=== PATIENT | male | born 1960 | race Caucasian/White ===

== ENCOUNTER 2019-12-22 14:07 | Emergency (ER) | payer BC, OTHER ==
[~2019-12-22] VITALS: Ht 180.3 cm; Wt 72.6 kg
[~2019-12-22 14:07] MED LIST: IBUPROFEN600 MG ORAL; ONDANSETRON ODT4 MG ORAL
[2019-12-22] MEDS ORDERED: Mylanta II UD 30ml ORAL ONE (14:45)
[2019-12-22] MEDS ORDERED: Omnipaque-300 100ml vial INJ PRN (14:45)
[2019-12-22 15:00] VITALS: BP 138/94
--- NOTE | 2019-12-22 15:44 | NUR ---
ED Nurse Note: Pt walked in from home c/o N/V since last night. Pt reports recent trip to [place] last week. Pt c/o abdominal pain and inabilty to tolerate PO intake. Pt states that he had a 99.0 temp @ home. Respirations even and unlabored on room air. Vitals stable as documented.
--- NOTE | 2019-12-22 15:50 | Emergency Room Report ---
History of Present Illness General Chief Complaint: Nausea, Vomiting, and Diarrhea Source: Patient Present Illness HPI 59-year-old male recent travel to [place] presents with acute nausea vomiting that started last night, no aggravating relieving factors severity is moderate, intermittent, he endorses some generalized abdominal cramps no diarrhea no fevers no chills no chest pain no shortness of breath no dyspnea on exertion patient presents for evaluation Allergies: Coded Allergies: No Known Allergies (Unverified , 11/26/13) Patient History Past Medical History: see triage record Reviewed Nursing Documentation: PMH: Agreed; PSxH: Agreed Nursing Documentation-PMH Past Medical History: No History, Except For Hx Hypertension: Yes Review of Systems All Other Systems: negative except mentioned in HPI Physical Exam Vital Signs Date Time Temp Pulse Resp B/P (MAP) Pulse Ox O2 Delivery O2 Flow Rate FiO2 12/22/19 14:12 98.4 109 20 142/92 (109) 97 Room Air Sp02 EP Interpretation: reviewed, normal General Appearance: well appearing, no apparent distress, alert Head: normocephalic, atraumatic Eyes: bilateral eye PERRL, bilateral eye EOMI ENT: uvula midline, moist mucus membranes Neck: supple, thyroid normal, supple/symm/no masses Respiratory: lungs clear, no respiratory distress, no retraction, no accessory muscle use Cardiovascular #1: normal peripheral pulses, regular rate, rhythm, no edema, no gallop, no murmur Gastrointestinal: non tender, soft, no guarding, no rebound Musculoskeletal: normal inspection Neurologic: alert, oriented x3 Psychiatric: mood/affect normal Skin: no rash, warm/dry Medical Decision Making Diagnostic Impression: Primary Impression: Enteritis ER Course 59-year-old male presents with abdominal pain differential diagnosis includes appendicitis diverticulitis, enteritis given his recent travel Fluids provided, Zofran provided abdomen remains soft nontender no rebound no guarding Reevaluation 7:58 PM, patient feels better We will provide patient with Zofran, supportive care disposition home with return precautions abdomen soft Laboratory Tests Test 12/22/19 15:55 12/22/19 17:30 White Blood Count 9.3 K/UL (4.8-10.8) Red Blood Count 5.88 M/UL (4.70-6.10) Hemoglobin 17.7 G/DL (14.2-18.0) Hematocrit 54.4 % (42.0-52.0) H Mean Corpuscular Volume 93 FL (80-99) Mean Corpuscular Hemoglobin 30.0 PG (27.0-31.0) Mean Corpuscular Hemoglobin Concent 32.5 G/DL (32.0-36.0) Red Cell Distribution Width 11.4 % (11.6-14.8) L Platelet Count 206 K/UL (150-450) Mean Platelet Volume 10.0 FL (6.5-10.1) Neutrophils (%) (Auto) % (45.0-75.0) Lymphocytes (%) (Auto) % (20.0-45.0) Monocytes (%) (Auto) % (1.0-10.0) Eosinophils (%) (Auto) % (0.0-3.0) Basophils (%) (Auto) % (0.0-2.0) Differential Total Cells Counted 100 Neutrophils % (Manual) 94 % (45-75) H Lymphocytes % (Manual) 4 % (20-45) L Monocytes % (Manual) 2 % (1-10) Eosinophils % (Manual) 0 % (0-3) Basophils % (Manual) 0 % (0-2) Band Neutrophils 0 % (0-8) Platelet Estimate Adequate Platelet Morphology Normal Polychromasia 1+ Urine Color Pale yellow Urine Appearance Slightly cloudy Urine pH 6 (4.5-8.0) Urine Specific [place] 1.015 (1.005-1.035) Urine Protein 1+ (NEGATIVE) H Urine Glucose (UA) Negative (NEGATIVE) Urine Ketones Negative (NEGATIVE) Urine Blood Negative (NEGATIVE) Urine Nitrite Negative (NEGATIVE) Urine Bilirubin Negative (NEGATIVE) Urine Urobilinogen Normal MG/DL (0.0-1.0) Urine Leukocyte Esterase Negative (NEGATIVE) Urine RBC 0 /HPF (0 - 0) Urine WBC 0-2 /HPF (0 - 0) Urine Squamous Epithelial Cells Occasional /LPF Urine Bacteria Few /HPF (NONE) Urine Mucus Moderate /LPF (NONE/OCC) H Sodium Level 144 MMOL/L (136-145) Potassium Level 4.5 MMOL/L (3.5-5.1) Chloride Level 109 MMOL/L (98-107) H Carbon Dioxide Level 25 MMOL/L (21-32) Anion Gap 10 mmol/L (5-15) Blood Urea Nitrogen 17 mg/dL (7-18) Creatinine 1.1 MG/DL (0.55-1.30) Estimate Glomerular Filtration Rate > 60 mL/min (>60) Glucose Level 125 MG/DL (74-106) H Calcium Level 8.4 MG/DL (8.5-10.1) L Total Bilirubin 0.6 MG/DL (0.2-1.0) Aspartate Amino Transferase (AST) 21 U/L (15-37) Alanine Aminotransferase (ALT) 28 U/L (12-78) Alkaline Phosphatase 59 U/L (46-116) Total Protein 6.7 G/DL (6.4-8.2) Albumin 3.2 G/DL (3.4-5.0) L Globulin 3.5 g/dL Albumin/Globulin Ratio 0.9 (1.0-2.7) L Lipase 80 U/L (73-393) CT/MRI/US Diagnostic Results CT/MRI/US Diagnostic Results : Impression Procedure: CT Abdomen Pelvis w/Contrast CT ABDOMEN + PELVIS With Contrast: Nonobstructing bilateral renal stones. No hydronephrosis or ureteral stone. Bilateral renal cysts. Heterogeneous, enlarged prostate. Appendix is not visualized, but no CT evidence of acute appendicitis. Mildly prominent fluid and gas-filled small bowel loops are nonspecific but could represent enteritis or ileus in the appropriate clinical setting. Atherosclerotic changes of the vasculature. No aortic aneurysm or dissection. Probable small bone islands in the pelvic bones. Distended bladder. No significant bladder wall thickening or stone. Dictated By: Angela Davis MD Electronically Signed By: Signed Date/Time CC: Last Vital Signs Date Time Temp Pulse Resp B/P (MAP) Pulse Ox O2 Delivery O2 Flow Rate FiO2 12/22/19 14:12 98.4 109 20 142/92 (109) 97 Room Air Disposition: HOME, SELF-CARE Condition: Stable Scripts Ondansetron (Zofran) 4 Mg Tablet 4 MG ORAL Q8H PRN for Nausea & Vomiting, #15 TAB 0 Refills Prov: Dmitriy Green MD 12/22/19 Referrals: [facility] Patient Instructions: Viral Gastroenteritis, Adult, [id number] Additional Instructions: The patient was provided with discharge instructions, notified to follow-up with a primary care doctor and or specialist in the next 24-48 hours, and to return to the ED if they have worsening of their symptoms. Please note that this report is being documented using [employer] technology. This can lead to erroneous entry secondary to incorrect interpretation by the dictating instrument. Dmitriy Green MD Dec 22, 2019 15:50
[2019-12-22] MEDS ORDERED: Acetaminophen 500mg (ES) tab ORAL ONE (16:00)
--- NOTE | 2019-12-22 16:20 | NUR ---
ED Nurse Note: blood and urine sent to lab
[2019-12-22 16:31] LABS: HEMATOCRIT 54.4 % (42.0-52.0); HEMOGLOBIN 17.7 G/DL (14.2-18.0); MEAN CORPUSCULAR VOLUME 93 FL (80-99); PLATELET COUNT 206 K/UL (150-450); RED BLOOD COUNT 5.88 M/UL (4.70-6.10); RED CELL DISTRIBUTION WIDTH 11.4 % (11.6-14.8); WHITE BLOOD COUNT 9.3 K/UL (4.8-10.8)
[2019-12-22 17:12] LABS: APPEARANCE,URINE SLIGHTLY CLOUDY; BILIRUBIN, URINE NEGATIVE (NEGATIVE); COLOR,URINE PALE YELLOW; GLUCOSE, URINE (UA) NEGATIVE (NEGATIVE); KETONES,URINE NEGATIVE (NEGATIVE); LEUKOCYTE ESTERASE ,URINE NEGATIVE (NEGATIVE); NITRITE,URINE NEGATIVE (NEGATIVE); PH,URINE 6 (4.5-8.0); PROTEIN,URINE 1+ (NEGATIVE); UROBILINOGEN,URINE NORMAL MG/DL (0.0-1.0)
[2019-12-22 17:49] LABS: ALANINE AMINOTRANSFERASE 28 U/L (12-78); ALBUMIN 3.2 G/DL (3.4-5.0); ALBUMIN/GLOBULIN RATIO 0.9 (1.0-2.7); ALKALINE PHOSPHATASE 59 U/L (46-116); ANION GAP 10 mmol/L (5-15); ASPARTATE AMINO TRANSFERASE 21 U/L (15-37); BILIRUBIN,TOTAL 0.6 MG/DL (0.2-1.0); BLOOD UREA NITROGEN 17 mg/dL (7-18); CALCIUM 8.4 MG/DL (8.5-10.1); CARBON DIOXIDE 25 MMOL/L (21-32); CHLORIDE 109 MMOL/L (98-107); CREATININE 1.1 MG/DL (0.55-1.30); POTASSIUM 4.5 MMOL/L (3.5-5.1); SODIUM 144 MMOL/L (136-145)
--- NOTE | 2019-12-22 17:59 | NUR ---
ED Nurse Note: Pt in radiology
--- NOTE | 2019-12-22 18:28 | NUR ---
ED Nurse Note: Pt back from CT
--- NOTE | 2019-12-22 19:30 | NUR ---
ED Nurse Note: Report given to PRUDENCIO Doty. Plan of care endorsed.
--- NOTE | 2019-12-22 19:48 | Diagnostic Imaging Report ---
Clinical Indication: Abdominal pain, nausea, vomiting Technique: No oral contrast utilized, per emergency room physician request IV administration nonionic contrast. Venous phase spiral acquisition obtained through the abdomen and pelvis. Multiplanar reconstructions were generated. Total dose length product 71 mGycm. CTDIvol(s) 13 mGy. Dose reduction achieved using automated exposure control Comparison: none Findings: The appendix is not definitely identified, but no findings to suggest acute appendicitis are evident. There are colonic diverticula. No evidence of diverticulitis. Small bowel loops are prominent, fluid-filled, but no definite transition point is demonstrated. No free or loculated intraperitoneal gas or fluid is evident. The distal esophagus, stomach, duodenum are unremarkable. The gallbladder, bile ducts, pancreas, liver, spleen, adrenals are unremarkable. The kidneys demonstrate numerous cysts and numerous subcentimeter low-attenuation lesions which are too small to characterize. Some of the cysts contain calcifications or have calcified parker. There is also a 9 mm calyceal calculus in the left renal lower pole. The bladder is somewhat distended. The prostate is enlarged.. The included lung bases are clear. The bones demonstrate minimal degenerative changes of the spine. Scattered small sclerotic lesions in the hips and pelvis probably represent small bone islands. Impression: Mildly prominent fluid-filled small bowel loops, could indicate enteritis changes No acute abnormality otherwise Colonic diverticulosis. No evidence of diverticulitis Bilateral nonobstructive renal calculi Enlarged prostate. Distended bladder, possibly related to the above Minimal degenerative spondylosis Incidental finding of multiple hip and pelvic bone islands This agrees with the preliminary interpretation provided overnight by [facility] teleradiology service. The CT scanner at [facility] is accredited by the [employer] and the scans are performed using protocols designed to limit radiation exposure to as low as reasonably achievable to attain images of sufficient resolution adequate for diagnostic evaluation.
[2019-12-22] MEDS ORDERED: ZOFRAN4 MG ORAL (19:59)
[2019-12-22 20:05] VITALS: BP 138/94
--- NOTE | 2019-12-22 20:05 | NUR ---
ER DISCHARGE NOTE: Patient is cleared to be discharged per ERMD, pt is aox4, on room air, with stable vital signs. pt was given dc and prescription instructions, pt was able to verbalize understanding, pt id band and iv site removed without complications. pt is able to ambulate with steady gait. pt took all belongings.
== END 2019-12-22 20:05 | disposition home or self-care (01) ==
LOC: EMR 14:50
DX: K52.9 Noninfective gastroenteritis and colitis, unspecified (principal); N28.1 Cyst of kidney, acquired; N20.0 Calculus of kidney; N40.0 Benign prostatic hyperplasia without lower urinary tract symptoms; I10 Essential (primary) hypertension
CPT/HCPCS: 36415; 74177; 80053; 81003; 83690; 85007; 85025; 96361; 96374; 96375; 99284; J2405; J7030; Q9967; S0028